=== PATIENT | male | born 1970 | race Caucasian/White ===

== ENCOUNTER 2024-09-13 13:19 | Outpatient (CLI) | payer OTHER | END 2024-09-13 13:45 | disposition home or self-care (01) | LOC: SONOGRAMA 13:19 | PROVIDERS: ATTEND Internal Medicine Sports Medicine | DX: E04.1 Nontoxic single thyroid nodule (principal); E04.9 Nontoxic goiter, unspecified; E03.9 Hypothyroidism, unspecified ==

== ENCOUNTER 2025-02-17 07:41 | Emergency (ER) | payer OTHER ==
[~2025-02-17] VITALS: Ht 180.3 cm; Wt 113.4 kg
[2025-02-17] MEDS ORDERED: NEURONTIN300 MG PO (08:16)
[2025-02-17] MEDS ORDERED: TRAM1TAB98 (08:19)
[2025-02-17] MEDS ORDERED: ORAPRED ODT15 MG PO (08:20)
[2025-02-17] MEDS ORDERED: DEXAMETHASONE SODIUM PHOSPHATE 4 MG/ML VIAL IM STA (08:43)
[2025-02-17] MEDS ORDERED: ORPHENADRINE CITRATE 30 MG/ML AMPUL IM STA (08:44)
[2025-02-17] MEDS ORDERED: MORPHINE SULFATE 2 MG/ML SYRINGE IV STA (08:45)
[2025-02-17] MEDS ORDERED: ORPHENADRINE CITRATE 30 MG/ML AMPUL ONE (08:57)
[2025-02-17] MEDS ORDERED: DEXAMETHASONE SODIUM PHOSPHATE 4 MG/ML VIAL ONE (09:01)
[2025-02-17 10:18] LABS: BASO % 0.5 % (0.1-1.2); EOS # 0.05 (0.04-0.54); EOS % 0.6 % (0.7-7.0); LYMPH # 1.86 (1.18-3.74); LYMPH % 22.0 % (19.3-53.1); MEAN PLATELET VOLUME 11.50 fl (9.4-12.4); MONO # 0.58 (0.24-0.82); MONO % 6.8 % (4.7-12.5); NEUT # 5.88 (1.56-6.13); NEUT % 69.4 % (34.0-71.1); RED CELL DISTRIBUTION WIDTH 12.3 % (11.6-14.4)
[2025-02-17 10:19] LABS: ERYTHROCYTE SEDIMENTATION RATE 29 mm/hr (0-20)
[2025-02-17 11:02] LABS: ALT/SGPT 49 U/L (12-78); AST/SGOT 25 U/L (15-37); BILIRUBIN TOTAL 0.68 mg/dL (0.3-1.2); BUN CREA RATIO 24 (7.0-25.0); CREATININE SERUM 0.91 mg/dL (0.70-1.30); GFR 86.18; GLOBULINA 3.3 G/DL (2.4-3.5); GLUCOSE FASTING 93 mg/dL (65-100); OSMOLALITY SERUM 279 MOSM/KG (275-295)
[2025-02-17 11:03] LABS: INR 0.96
[2025-02-17 12:11] LABS: URINE APPEARANCE Clear; URINE BILIRRUBIN Negative (NEGATIVE); URINE BLOOD Negative; URINE COLOR Yellow; URINE GLUCOSE Negative (NEGATIVE); URINE KETONE Negative (NEGATIVE); URINE LEUKOCYTE Trace; URINE NITRATE Negative; URINE PROTEIN Negative (NEGATIVE); URINE UROBILINOGEN 0.2 E.U./dl
[2025-02-17 12:14] LABS: URINE WBC 1.8 uL (0.0-23.2)
[2025-02-17 12:26] LABS: URINE BACTERIA 3.6 uL (0.0-1933); URINE CAST 0.00 uL (0.0-1.40); URINE EPITHELIAL CELLS 0.6 uL (0.0-38.8); URINE RBC 1.6 uL (0.0-20.8)
== END 2025-02-17 14:32 | disposition home or self-care (01) ==
LOC: ER 07:41
PROVIDERS: Physician Assistant Medical
DX: M54.2 Cervicalgia (principal); I10 Essential (primary) hypertension; Z88.6 Allergy status to analgesic agent; M62.838 Other muscle spasm